=== PATIENT | male | born 1940 | race Caucasian/White ===

== ENCOUNTER 2016-12-15 13:37 | Outpatient (CLI) | payer MEDICARE, OTHER ==
[2015-04-21 12:04] VITALS: BP 110/78
[2016-12-15 14:16] LABS: BASOPHILS % 0.1 (0.0-1.5); EOSINOPHILS % 1.3 % (0.0-6.8); MEAN CORPUSCULAR HEMOGLOBIN 30.9 pg (28.0-34.0); MEAN CORPUSCULAR VOLUME 87.8 fl (80.0-100.0); MONOCYTES % 4.2 % (0.0-11.0); NEUTROPHILS # 15.6 # k/uL (1.4-7.7)
[2016-12-15 14:33] LABS: eGFR (African) > 60; eGFR (Non-African) > 60
--- NOTE | 2016-12-15 19:04 | Diagnostic Imaging Report ---
YOKASTA GOOD~ [facility] [address] [id number] ~ ~ ~ ~ Report Submission Date: Dec 15, 2016 2:23:09 PM CDT Patient ~ Study Name: LUKAS HERNANDES ~ Date: Dec 15, 2016 1:53:32 PM CDT ~ Modality Type: CR Gender: M ~ Description: CHEST : 44 ~ Institution: [facility] Physician: YOKASTA GOOD ~ ~ ~ ~ Examination: PA and lateral chest. History: Evaluate lung vivas. Comparison exam: None available Findings: PA lateral chest demonstrate a normal cardiac and mediastinal silhouette. Left sided cardiac pacemaker. Mild haziness at the left lung base with obscuration of the costophrenic margin. ~Right hemithorax without focal infiltrative process. No blunting of the posterior sulci. ~ Osseous structures are appropriate for age. Impression: Left base hazy infiltrate. Follow as warranted to document resolution. ~ Electronically signed on Dec 15, 2016 2:23:09 PM CDT by: Stevenson ENNIS
== END 2016-12-15 13:40 ==
LOC: RT 13:37
PROVIDERS: ATTEND Family Medicine
DX: I25.10 Atherosclerotic heart disease of native coronary artery without angina pectoris (principal); R06.09 Other forms of dyspnea; I10 Essential (primary) hypertension; I50.23 Acute on chronic systolic (congestive) heart failure
CPT/HCPCS: 36415; 71020; 80053; 83880; 84484; 85025

== ENCOUNTER 2017-01-25 09:08 | Outpatient (CLI) | payer MEDICARE, OTHER ==
[2015-04-21 12:04] VITALS: BP 110/78
[2017-01-25 09:19] LABS: BASOPHILS % 0.5 (0.0-1.5); EOSINOPHILS % 2.2 % (0.0-6.8); MEAN CORPUSCULAR HEMOGLOBIN 29.4 pg (28.0-34.0); MEAN CORPUSCULAR VOLUME 87.5 fl (80.0-100.0); MONOCYTES % 6.1 % (0.0-11.0); NEUTROPHILS # 5.3 # k/uL (1.4-7.7)
== END 2017-01-25 09:10 ==
LOC: LAB 09:08
PROVIDERS: ATTEND Family Medicine
DX: I10 Essential (primary) hypertension (principal); E11.9 Type 2 diabetes mellitus without complications
CPT/HCPCS: 36415; 83036; 85025

== ENCOUNTER 2017-02-20 10:44 | Outpatient (CLI) | payer MEDICARE, OTHER ==
[2015-04-21 12:04] VITALS: BP 110/78
== END 2017-02-20 10:45 ==
LOC: LABRHC 10:44
PROVIDERS: ATTEND Family Medicine
DX: C44.319 Basal cell carcinoma of skin of other parts of face (principal)

== ENCOUNTER 2017-04-27 14:38 | Outpatient (CLI) | payer MEDICARE, OTHER ==
[2015-04-21 12:04] VITALS: BP 110/78
== END 2017-04-27 14:40 ==
LOC: LAB 14:38
PROVIDERS: ATTEND Family Medicine
DX: E11.9 Type 2 diabetes mellitus without complications (principal)
CPT/HCPCS: 36415; 83036

== ENCOUNTER 2017-08-21 14:12 | Outpatient (CLI) | payer MEDICARE, OTHER ==
[2015-04-21 12:04] VITALS: BP 110/78
== END 2017-08-21 14:13 ==
LOC: CARD 14:12
PROVIDERS: ATTEND Internal Medicine Cardiovascular Disease
DX: I42.9 Cardiomyopathy, unspecified (principal); I25.10 Atherosclerotic heart disease of native coronary artery without angina pectoris; Q21.1 Atrial septal defect; I10 Essential (primary) hypertension; E78.5 Hyperlipidemia, unspecified; E11.9 Type 2 diabetes mellitus without complications; E66.9 Obesity, unspecified; N18.3 Chronic kidney disease, stage 3 (moderate); Z79.899 Other long term (current) drug therapy; Z86.79 Personal history of other diseases of the circulatory system
CPT/HCPCS: G0463

== ENCOUNTER 2017-11-12 16:25 | Outpatient (CLI) | payer MEDICARE, OTHER ==
[2015-04-21 12:04] VITALS: BP 110/78
== END 2017-11-12 16:26 ==
LOC: LAB 16:25
PROVIDERS: ATTEND Family Medicine
DX: E11.9 Type 2 diabetes mellitus without complications (principal)
CPT/HCPCS: 36415; 83036

== ENCOUNTER 2017-12-11 11:10 | Outpatient (CLI) | payer MEDICARE, OTHER ==
[2015-04-21 12:04] VITALS: BP 110/78
== END 2017-12-11 11:12 ==
LOC: CARD 11:10
PROVIDERS: ATTEND Internal Medicine Cardiovascular Disease
DX: I42.9 Cardiomyopathy, unspecified (principal); I25.10 Atherosclerotic heart disease of native coronary artery without angina pectoris; Z86.79 Personal history of other diseases of the circulatory system; I10 Essential (primary) hypertension; E78.5 Hyperlipidemia, unspecified; E11.9 Type 2 diabetes mellitus without complications; E66.9 Obesity, unspecified; N18.3 Chronic kidney disease, stage 3 (moderate); Z79.899 Other long term (current) drug therapy; Q21.1 Atrial septal defect
CPT/HCPCS: G0463

== ENCOUNTER 2018-04-03 14:41 | Outpatient (CLI) | payer MEDICARE, OTHER ==
[2015-04-21 12:04] VITALS: BP 110/78
== END 2018-04-03 14:46 | disposition home or self-care (01) ==
LOC: LABRHC 14:41
PROVIDERS: ATTEND Family Medicine
DX: C44.311 Basal cell carcinoma of skin of nose (principal)

== ENCOUNTER 2018-07-01 10:24 | Outpatient (CLI) | payer MEDICARE, OTHER ==
[2015-04-21 12:04] VITALS: BP 110/78
[2018-07-01 10:58] LABS: BASOPHILS % 1.3 (0.0-1.5); EOSINOPHILS % 3.1 % (0.0-6.8); MEAN CORPUSCULAR HEMOGLOBIN 29.9 pg (28.0-34.0); MONOCYTES % 7.7 % (0.0-11.0); NEUTROPHILS # 6.3 # k/uL (1.4-7.7)
[2018-07-01 11:11] LABS: eGFR (Non-African) > 60
[2018-07-01 12:40] LABS: APPEARANCE,URINE CLOUDY (CLEAR); COLOR,URINE YELLOW (YELLOW); OCCULT BLOOD,URINE TRACE-INTACT (NEGATIVE); UROBILINOGEN URINE 0.2 Eu (0.2-1.0)
[2018-07-01 12:54] LABS: YEAST,URINE FEW (NEGATIVE)
== END 2018-07-01 10:26 ==
LOC: LAB 10:24
PROVIDERS: ATTEND Family Medicine
DX: R31.0 Gross hematuria (principal); E11.9 Type 2 diabetes mellitus without complications; E78.00 Pure hypercholesterolemia, unspecified; I10 Essential (primary) hypertension
CPT/HCPCS: 36415; 80053; 80061; 81002; 83036; 85025

== ENCOUNTER 2019-03-19 16:23 | Outpatient (CLI) | payer MEDICARE, OTHER ==
[2015-04-21 12:04] VITALS: BP 110/78
[2019-03-19 16:56] LABS: A1C 9.6 % (<5.7)
== END 2019-03-19 16:28 ==
LOC: LABRHC 16:23
PROVIDERS: ATTEND Family Medicine
DX: E11.9 Type 2 diabetes mellitus without complications (principal); E78.00 Pure hypercholesterolemia, unspecified
CPT/HCPCS: 80061; 83036